=== PATIENT | female | born 1975 | race Caucasian/White ===

== ENCOUNTER → 2017-01-10 | Outpatient (CLI) | payer OTHER ==
[~2017-01-10] VITALS: Ht 167.6 cm; Wt 102.3 kg
[~2017-01-10] MED LIST: ADIPEX-P37.5 MG PO; NAPROSYN 2250 MG/TAB PO; PRILOSEC10 MG PO; ZESTRIL 20MG TA20 MG PO
[2017-01-10 08:16] VITALS: BP 136/69; PULSE 77
== END ==
LOC: LIGHT 10:00
DX: I10 Essential (primary) hypertension (principal); K21.9 Gastro-esophageal reflux disease without esophagitis; E66.9 Obesity, unspecified; Z68.36 Body mass index [BMI] 36.0-36.9, adult; G47.33 Obstructive sleep apnea (adult) (pediatric)

== ENCOUNTER → 2017-01-23 | Outpatient (CLI) | payer OTHER | LOC: LIGHT 14:31 | DX: Z02.89 Encounter for other administrative examinations (principal) ==

== ENCOUNTER → 2017-02-01 | Outpatient (CLI) | payer OTHER ==
[~2017-02-01] VITALS: Ht 167.6 cm; Wt 102.3 kg
[2017-02-01 08:35] VITALS: BP 112/61; PULSE 70
== END ==
LOC: LIGHT 08:30
DX: I10 Essential (primary) hypertension (principal); K21.9 Gastro-esophageal reflux disease without esophagitis; E66.9 Obesity, unspecified; Z68.36 Body mass index [BMI] 36.0-36.9, adult; Z71.3 Dietary counseling and surveillance; G47.33 Obstructive sleep apnea (adult) (pediatric)

== ENCOUNTER → 2017-02-22 | Outpatient (CLI) | payer OTHER | LOC: LIGHT 10:02 | DX: Z01.818 Encounter for other preprocedural examination (principal) ==

== ENCOUNTER → 2017-03-08 | Outpatient (CLI) | payer OTHER ==
[~2017-03-08] VITALS: Ht 167.6 cm; Wt 98.7 kg
[2017-03-08 13:05] VITALS: BP 130/78; PULSE 71
== END ==
LOC: LIGHT 12:16
DX: I10 Essential (primary) hypertension (principal); K21.9 Gastro-esophageal reflux disease without esophagitis; E66.9 Obesity, unspecified; Z68.35 Body mass index [BMI] 35.0-35.9, adult; Z71.3 Dietary counseling and surveillance; G47.33 Obstructive sleep apnea (adult) (pediatric)

== ENCOUNTER → 2017-05-03 | Outpatient (CLI) | payer OTHER ==
[~2017-05-03] VITALS: Ht 167.6 cm; Wt 97.3 kg
[2017-05-03 09:56] VITALS: BP 104/70; PULSE 68
== END ==
LOC: LIGHT 09:41
DX: I10 Essential (primary) hypertension (principal); K21.9 Gastro-esophageal reflux disease without esophagitis; E66.9 Obesity, unspecified; Z68.34 Body mass index [BMI] 34.0-34.9, adult; Z71.3 Dietary counseling and surveillance; G47.33 Obstructive sleep apnea (adult) (pediatric)

== ENCOUNTER → 2017-08-02 | Outpatient (CLI) | payer OTHER ==
[~2017-08-02] VITALS: Ht 167.6 cm; Wt 100.9 kg
[2017-08-02 09:48] VITALS: BP 132/90; PULSE 72
== END ==
LOC: LIGHT 06-28 09:48
DX: I10 Essential (primary) hypertension (principal); K21.9 Gastro-esophageal reflux disease without esophagitis; E66.9 Obesity, unspecified; Z68.35 Body mass index [BMI] 35.0-35.9, adult; Z71.3 Dietary counseling and surveillance; G47.33 Obstructive sleep apnea (adult) (pediatric)

== ENCOUNTER → 2017-09-27 | Outpatient (CLI) | payer OTHER ==
[~2017-09-27] VITALS: Ht 167.6 cm; Wt 98.4 kg
[2017-09-27 15:23] VITALS: BP 128/86; PULSE 84
== END ==
LOC: LIGHT 11:33
DX: I10 Essential (primary) hypertension (principal); K21.9 Gastro-esophageal reflux disease without esophagitis; E66.9 Obesity, unspecified; Z68.35 Body mass index [BMI] 35.0-35.9, adult; Z71.3 Dietary counseling and surveillance; G47.33 Obstructive sleep apnea (adult) (pediatric)
CPT/HCPCS: G0463

== ENCOUNTER → 2017-12-06 | Outpatient (CLI) | payer OTHER ==
[~2017-12-06] VITALS: Ht 167.6 cm; Wt 99.6 kg
[2017-12-06 13:27] VITALS: BP 130/80; PULSE 68
== END ==
LOC: LIGHT 09:46
DX: I10 Essential (primary) hypertension (principal); K21.9 Gastro-esophageal reflux disease without esophagitis; E66.9 Obesity, unspecified; Z68.35 Body mass index [BMI] 35.0-35.9, adult; Z71.3 Dietary counseling and surveillance; G47.33 Obstructive sleep apnea (adult) (pediatric)
CPT/HCPCS: G0463

== ENCOUNTER → 2018-01-03 | Outpatient (CLI) | payer OTHER ==
[~2018-01-03] VITALS: Ht 167.6 cm; Wt 98.2 kg
[2018-01-03 11:46] VITALS: BP 112/84; PULSE 60
== END ==
LOC: LIGHT 11:39
DX: I10 Essential (primary) hypertension (principal); K21.9 Gastro-esophageal reflux disease without esophagitis; E66.9 Obesity, unspecified; Z68.34 Body mass index [BMI] 34.0-34.9, adult; Z71.3 Dietary counseling and surveillance; G47.33 Obstructive sleep apnea (adult) (pediatric)
CPT/HCPCS: G0463

== ENCOUNTER → 2018-04-25 | Outpatient (CLI) | payer OTHER ==
[~2018-04-25] VITALS: Ht 167.6 cm; Wt 99.6 kg
[2018-04-25 16:20] VITALS: BP 126/50; PULSE 70
== END ==
LOC: LIGHT 03-07 14:30
DX: I10 Essential (primary) hypertension (principal); K21.9 Gastro-esophageal reflux disease without esophagitis; G47.33 Obstructive sleep apnea (adult) (pediatric); E66.9 Obesity, unspecified; Z68.35 Body mass index [BMI] 35.0-35.9, adult; Z71.3 Dietary counseling and surveillance
CPT/HCPCS: G0463

== ENCOUNTER → 2018-06-03 | Outpatient (CLI) | payer OTHER | LOC: MC.RAD 13:20 | DX: Z12.31 Encounter for screening mammogram for malignant neoplasm of breast (principal) ==

== ENCOUNTER → 2018-06-13 | Outpatient (CLI) | payer OTHER ==
[~2018-06-13] VITALS: Ht 167.6 cm; Wt 98.0 kg
[2018-06-13 08:32] VITALS: BP 120/90; PULSE 60
== END ==
LOC: LIGHT
DX: I10 Essential (primary) hypertension (principal); K21.9 Gastro-esophageal reflux disease without esophagitis; G47.33 Obstructive sleep apnea (adult) (pediatric); E66.9 Obesity, unspecified; Z68.34 Body mass index [BMI] 34.0-34.9, adult; Z71.3 Dietary counseling and surveillance
CPT/HCPCS: G0463

== ENCOUNTER → 2018-08-15 | Outpatient (CLI) | payer OTHER | LOC: LIGHT 14:09 | DX: I10 Essential (primary) hypertension (principal); K21.9 Gastro-esophageal reflux disease without esophagitis; G47.33 Obstructive sleep apnea (adult) (pediatric); E66.9 Obesity, unspecified; Z71.3 Dietary counseling and surveillance | CPT/HCPCS: G0463 ==

== ENCOUNTER → 2018-11-28 | Outpatient (CLI) | payer OTHER ==
[~2018-11-28] VITALS: Ht 167.6 cm; Wt 100.9 kg
[2018-11-28 14:59] VITALS: BP 130/86; PULSE 80
== END ==
LOC: LIGHT 10-10 15:11
DX: I10 Essential (primary) hypertension (principal); K21.9 Gastro-esophageal reflux disease without esophagitis; G47.33 Obstructive sleep apnea (adult) (pediatric); E66.9 Obesity, unspecified; Z68.35 Body mass index [BMI] 35.0-35.9, adult; Z71.3 Dietary counseling and surveillance
CPT/HCPCS: G0463

== ENCOUNTER → 2019-02-13 | Outpatient (CLI) | payer OTHER ==
[~2019-02-13] VITALS: Ht 167.6 cm; Wt 100.2 kg
[2019-02-13 15:01] VITALS: BP 114/74; PULSE 60
== END ==
LOC: LIGHT 01-16 15:52
DX: I10 Essential (primary) hypertension (principal); K21.9 Gastro-esophageal reflux disease without esophagitis; G47.33 Obstructive sleep apnea (adult) (pediatric); E66.9 Obesity, unspecified; Z68.35 Body mass index [BMI] 35.0-35.9, adult; Z71.3 Dietary counseling and surveillance
CPT/HCPCS: G0463

== ENCOUNTER → 2019-08-19 | Outpatient (CLI) | payer OTHER | LOC: MC.RAD 08-18 08:30 | DX: Z12.31 Encounter for screening mammogram for malignant neoplasm of breast (principal) ==

== ENCOUNTER → 2020-08-23 | Outpatient (CLI) | payer OTHER | LOC: MC.RAD 09:39 | DX: Z12.31 Encounter for screening mammogram for malignant neoplasm of breast (principal) ==

== ENCOUNTER → 2021-08-24 | Outpatient (CLI) | payer OTHER | LOC: MC.RAD 12:50 | DX: Z12.31 Encounter for screening mammogram for malignant neoplasm of breast (principal) ==

== ENCOUNTER 2021-11-30 05:24 | Day surgery (SDC) | payer OTHER ==
[~2021-11-30] VITALS: Ht 170.2 cm; Wt 112.0 kg
[2021-11-30] VITALS (12 sets, daily range): BP systolic 116–163; BP diastolic 38–78; PULSE 51–79; TEMP 96.8–98.5
[2021-11-30] MEDS ORDERED: SINGULAIR 110 MG/TAB PO (05:51)
[2021-11-30] MEDS ORDERED: VYVANSE30 MG PO (05:52)
[2021-11-30] MEDS ORDERED: PRILOTC PO (05:53)
[2021-11-30] MEDS ORDERED: MAGNESIUM200 MG PO (05:53)
--- NOTE | 2021-11-30 12:40 | NUR ---
First visit from the vice president network. No needs right now.
--- NOTE | 2021-11-30 19:09 | NUR ---
Patient up from PACU at 1005. Patient held NPO until Barium swallow study performed. At 1500, patient was given blue gatorade to sip. Patient has not been able to tolerate many PO fluids. Patient encouraged to sip. Patient has reported four incidents of emesis. VSS. Patient complains of abdominal pain r/t gas. Patient encouraged to ambulate. Report given to weight shifter.
--- NOTE | 2021-11-30 19:10 | NUR ---
PT REPORTS NAUSEA WITH SMALL AMOUNT OF CLEAR EMESIS. MEDICATED WITH ZOFRAN 4MG IVP.
--- NOTE | 2021-11-30 19:59 | NUR ---
PT DOESN'T WANT TO TAKE THE ES TYLENOL D/T NAUSEA, REPORTS PAIN TO ABD 6/10. MEDICATED WITH OXYCODONE 5MG PO IT IS A SMALL PILL, TAKES LISINOPRIL AT THIS TIME WELL.
--- NOTE | 2021-11-30 20:11 | NUR ---
PT AMBULATES IN HALLWAY WITH SPOUSE, GAIT STEADY.
--- NOTE | 2021-11-30 21:55 | NUR ---
PT CONTINUES TO HAVE NAUSEA, NEW ORDER FOR PHENERGAN 12.5MG IV, GIVEN AT THIS TIME.
[2021-12-01 03:42] VITALS: BP 146/61; PULSE 66; TEMP 98.4
--- NOTE | 2021-12-01 04:07 | NUR ---
PT REPORTS NAUSEA, ATTEMPTED TO TAKE WATER AND COULD NOT KEEP DOWN. MEDICATED WITH ZOFRAN IV NOW, ICE CHIPS PROVIDED.
--- NOTE | 2021-12-01 05:31 | NUR ---
PT REMAINS UNABLE TO KEEP MEDS DOWN, MINIMAL ORAL INTAKE. DR LOPEZ NOTIFIED, IVF ORDERS GIVEN.
--- NOTE | 2021-12-01 05:36 | NUR ---
PT MEDICATED WITH PHENERGAN 12.5MG IV FOR PERSISTENT NAUSEA, DID TAKE ORAL PROTONIX, HAD SMALL AMOUNT OF CLEAR/WHITE EMESIS AFTER MED. WILL START IVF AFTER PHENERGAN GIVEN.
[2021-12-01 07:18] VITALS: BP 156/72; PULSE 54; TEMP 98.4
--- NOTE | 2021-12-01 10:21 | NUR ---
embroidery worker met with patient to discuss discharge plan. Patients Shaquille ([phone]) present at bedside. Patient lives at home with her in [place]. She is independent with her ADL's and does not utilize any DME to assist with mobility. Patient does have a CPAP at home that she got through [facility]. PCP is and she utilizes [facility] ([facility]) for medications with no cost difficulty. Patient reports that she does not have a DPOA-HC established. Education provided and the patients established legal next of kin is her . She is planning on returning home with no concerns. Discharge plan: Home with spouse
--- NOTE | 2021-12-01 11:20 | NUR ---
Patient complained of nausea and vomiting x2 this morning. Patient was given zofran IV. Patient complained of pain and requested pain medication. Will continue to monitor.
[2021-12-01 12:25] VITALS: BP 152/78; PULSE 54; TEMP 98.4
--- NOTE | 2021-12-01 12:51 | NUR ---
Initial visit; Patient thanked [employer] for looking in on her, offering God's blessings and for keeping her in [employer]'s prayers.
[2021-12-01 16:08] VITALS: BP 166/69; PULSE 52; TEMP 98.1
--- NOTE | 2021-12-01 18:20 | NUR ---
PATIENT HAS HAD A FEW BOUTS OF NAUSEA AND VOMITING THROUGHOUT SHIFT. PATIENT WAS CONTINUED ON IV FLUIDS FOR HYDRATION. SWETA DRAIN DC'D. PATIENT TOLERATED WELL. PATIENT DENIES ANY PAIN AT THIS TIME. WILL CONTINUE TO MONITOR.
--- NOTE | 2021-12-01 19:26 | NUR ---
RECEIVED CHANGE OF SHIFT REPORT FROM DAY SHIFT RN. PATIENT RESTING IN BED DURING REPORT WITH AT BEDSIDE. DENIES ANY NEEDS AT TIME OF REPORT.
[2021-12-01 20:34] VITALS: BP 142/66; PULSE 60; TEMP 98.2
--- NOTE | 2021-12-01 23:00 | NUR ---
PATIENT UP PER SELF IN ROOM WITH NO REPORTED PROBLEMS OR CONCERNS. IV FLUIDS INFUSING WITH NO PROBLEMS. REPORTS NOT PASSING FLATUS YET AT THIS TIME, WITH NO REPORTED PROBLEMS WITH VOIDING. DENIES CHEST PAIN/SOA AT THIS TIME. DENIES NAUSEA SO FAR TODAY.
[2021-12-02 00:32] VITALS: BP 135/59; PULSE 62; TEMP 98.9
[2021-12-02 04:35] VITALS: BP 132/56; PULSE 63; TEMP 98.6
--- NOTE | 2021-12-02 07:05 | NUR ---
CHANGE OF SHIFT REPORT GIVEN TO DAY SHIFT RNCIERA.
[2021-12-02 08:17] VITALS: BP 131/70; PULSE 63; TEMP 98.4
--- NOTE | 2021-12-02 11:13 | NUR ---
PT DOING WELL THIS MORNING, STATES THAT SHE HAS HAD NO PAIN OR NAUSEA THIS MORNING. PT AMBULATING INDEPENDENTLY TO BR. PT REPORTS NOT YET HAVING FLATULENCE OR A BM BUT HAS BEEN BURPING.
[2021-12-02 11:21] VITALS: BP 140/71; PULSE 61; TEMP 98.3
--- NOTE | 2021-12-02 11:48 | NUR ---
PT PREPARING TO TAKE SHOWER, CONTINUES TO DENY PAIN OR NAUSEA. FAMILY IN ROOM. PT DENIES NEEDS.
[2021-12-02] MEDS ORDERED: ZOFRAN 4MG T4 MG/TAB PO (12:54)
[2021-12-02] MEDS ORDERED: ULTRAM 50MG TAB50 MG PO (12:55)
--- NOTE | 2021-12-02 14:15 | NUR ---
PT IS BEING DISCHARGED TO HOME, CONTINUES TO DENY NAUSEA OR PAIN. IV INT DCED IN LEFT HAND, CATHETER TIP INTACT. DISCHARGE EDUCATION ET INSTRUCTIONS GIVEN TO PT ET SPOUSE, BOTH DENY QUESTIONS.
== END 2021-12-02 14:25 | disposition home or self-care (01) ==
LOC: SDCO 05:24 → SURG 10:03 → SDCO 12-02 14:25
DX: E66.01 Morbid (severe) obesity due to excess calories (principal); K29.50 Unspecified chronic gastritis without bleeding; K21.9 Gastro-esophageal reflux disease without esophagitis; Z79.899 Other long term (current) drug therapy; Z87.891 Personal history of nicotine dependence; Z68.38 Body mass index [BMI] 38.0-38.9, adult
CPT/HCPCS: OP; J0690; J1100; J1170; J1885; J2405; J2550; J2704; J3010; J3480; J7120

== ENCOUNTER → 2023-09-10 | Outpatient (CLI) | payer OTHER ==
[~2023-09-10] MED LIST changes: +MAGNESIUM200 MG PO; +PRILOTC PO; +SINGULAIR 110 MG/TAB PO; +ULTRAM 50MG TAB50 MG PO; +VYVANSE30 MG PO; +ZOFRAN 4MG T4 MG/TAB PO
== END ==
LOC: MC.RAD 07:30
DX: Z12.31 Encounter for screening mammogram for malignant neoplasm of breast (principal)